=== PATIENT | female | born 1990 | race Caucasian/White ===

== ENCOUNTER 2024-10-23 23:46 | Emergency (ER) | payer OTHER ==
[~2024-10-23] VITALS: Ht 160 cm; Wt 68.0 kg
[2024-10-24 00:58] LABS: BASOPHILS % (AUTO) 0.3 % (0.0-2.0); EOSINOPHILS % (AUTO) 0.4 % (0.0-6.0); HEMATOCRIT 46 % (33-45); HEMOGLOBIN 15.2 g/dL (11.5-14.8); LYMPHOCYTES # (AUTO) 0.6 K/uL (0.8-4.8); LYMPHOCYTES % (AUTO) 7.3 % (20.0-44.0); MEAN CORPUSCULAR HEMOGLOBIN 29 PG (26.0-33.0); MEAN CORPUSCULAR HGB CONC 33 g/dl (31.0-36.0); MEAN CORPUSCULAR VOLUME 88 fL (82-100); MONOCYTES # (AUTO) 0.3 K/uL (0.1-1.30); NEUTROPHILS # (AUTO) 7.8 K/uL (1.8-8.9); PLATELET COUNT (AUTO) 212 K/uL (150-450); RED CELL DISTRIBUTION WIDTH 13.9 % (11.5-15.0); WHITE BLOOD COUNT (AUTO) 8.8 K/uL (4.3-11.0)
[2024-10-24] MEDS: IV NS 0.9% 1,000 ML IV ONE (00:58)
[2024-10-24 01:00] LABS: APPEARANCE,URINE CLEAR (CLEAR); BILIRUBIN,URINE NEGATIVE (NEGATIVE); BLOOD, URINE 3+ Ery/uL (NEGATIVE); COLOR,URINE YELLOW (YELLOW); KETONES,URINE NEGATIVE (NEGATIVE); LEUKOCYTE ESTERASE ,URINE NEGATIVE (NEGATIVE); NITRITE, URINE NEGATIVE (NEGATIVE); PROTEIN,URINE NEGATIVE (NEGATIVE); UGLUCOSE NEGATIVE (NEGATIVE); UROBILINOGEN,URINE 0.2 EU/dL (0.2)
[2024-10-24 01:08] LABS: CALCIUM, SERUM 8.7 mg/dL (8.5-10.1); CARBON DIOXIDE 24 mmol/L (21-32); CHLORIDE 106 mmol/L (98-107); CREATININE 0.8 mg/dL (0.6-1.3); GLUCOSE 158 mg/dL (74-106); POTASSIUM 4.3 mmol/L (3.5-5.1); SODIUM SERUM 138 mmol/L (136-145); UREA NITROGEN, BLOOD 23 mg/dL (7-18)
[2024-10-24 01:21] LABS: ALANINE AMINOTRANSFERASE 18 U/L (12-78); ALBUMIN 3.8 g/dL (3.4-5.0); ALKALINE PHOSPHATASE 54 U/L (46-116); ASPARTATE AMINOTRANSFERASE 15 U/L (15-37); BILIRUBIN,TOTAL 0.3 mg/dL (0.2-1.0); LIPASE 32 U/L (16-77); NT-PRO BNP 21 pg/mL (0-125); TOTAL PROTEIN, SERUM 7.7 g/dL (6.4-8.2)
[2024-10-24 01:22] LABS: PREGNANCY TEST URINE QUAL NEGATIVE (NEGATIVE)
[2024-10-24] MEDS ORDERED: ONDANSETRON HCL/PF 4 MG/2 ML VIAL ONE (01:22)
[2024-10-24] MEDS ORDERED: KETOROLAC TROMETHAMINE INJ 30 MG/ML VIAL ONE (01:22)
[2024-10-24 01:27] LABS: ALCOHOL, BLOOD < 3 mg/dL (0-10)
[2024-10-24] MEDS: ONDANSETRON HCL/PF - ER 4 MG/2 ML VIAL IV ONE (01:28)
[2024-10-24] MEDS: KETOROLAC TROMETHAMINE INJ 30 MG/ML VIAL IV ONE (01:28)
[2024-10-24 01:30] LABS: AMPHETAMINE, URINE NEGATIVE (NEGATIVE); BARBITURATE, URINE NEGATIVE (NEGATIVE); BENZODIAZEPINE, URINE NEGATIVE (NEGATIVE); CANNABINOID, URINE NEGATIVE (NEGATIVE); COCCAINE, URINE NEGATIVE (NEGATIVE); OPIATE, URINE NEGATIVE (NEGATIVE); PHENCYCLIDINE SCREEN,URINE NEGATIVE (NEGATIVE)
[2024-10-24 01:58] LABS: ADD URINE CULTURE NO; BACTERIA,URINE None seen /HPF (None Seen); RBC,URINE 51-80 /HPF (0-2); WBC,URINE 0-2 /HPF (0-3)
[2024-10-24] MEDS ORDERED: ONDA4TAB5 PO (02:47)
[2024-10-24 03:04] VITALS: BP 102/76; TEMP 98; O2SAT 98
== END 2024-10-24 03:04 | disposition home or self-care (01) ==
LOC: ER 23:51
DX: K52.9 Noninfective gastroenteritis and colitis, unspecified (principal)
CPT/HCPCS: 99285; 96374; 96361; 96375; 74176; 85025; 83690; 84703; 81001; 36415; 80053; 84484; 83880; 80320; 80307; J1885; J2405 ×2; J7030; G0480